=== PATIENT | female | born 1985 | race Caucasian/White ===

== ENCOUNTER 2016-08-10 20:27 | Emergency (ER) | payer SELFPAY ==
[2016-08-10] MEDS ORDERED: DIPH/PERTUSS(ACELL)/TETANUS VAC/PF 0.5 ML SYR (>=10YO) IM ONE (21:45)
--- NOTE | 2016-08-10 21:47 | ER Document Report ---
ED Medical Screen (RME) - General Chief Complaint: Dog Bite Stated Complaint: DOG BITE Notes: 31-year-old female, bitten by a stray dog on back and thigh just prior to arrival. Bulldog-looking dog, dog was not caught and is not in custody. Patient tetanus is not up-to-date within 5 years. TRAVEL OUTSIDE OF THE [place] IN LAST 30 DAYS: No - Related Data Allergies/Adverse Reactions: cephalexin monohydrate [From Keflex] Allergy (Verified 04/19/16 01:27) codeine [Codeine] Allergy (Verified 04/19/16 01:27) Past Medical History Renal/ Medical History: Denies: Hx Peritoneal Dialysis Past Surgical History: Reports: Hx Section, Hx Tubal Ligation - Immunizations Hx Diphtheria, Pertussis, Tetanus Vaccination: Yes Physical Exam - Vital signs Vitals: Temp Pulse BP Pulse Ox 98.3 F 110 H 146/102 H 99 08/10/16 20:43 08/10/16 20:43 08/10/16 20:43 08/10/16 20:43 - Skin Skin irregularity: other - Superficial linear wounds over the back Course - Vital Signs Vital signs: Temp Pulse Resp BP Pulse Ox 98.3 F 110 H 146/102 H 99 08/10/16 20:43 08/10/16 20:43 08/10/16 20:43 08/10/16 20:43
[2016-08-10] MEDS ORDERED: HYDROCODONE/ACETAMINOPHEN 5-325 MG TABLET PO ONE (23:16)
[2016-08-10] MEDS ORDERED: RABIES VACCINE (PCEC)/PF 2.5 UNIT/1 ML KIT IM ONE (23:16)
[2016-08-10] MEDS ORDERED: RABIES IMMUNE GLOBULIN INJ/PF 300 UNIT/2 ML SDV IM ONE (23:16)
[2016-08-10] MEDS ORDERED: HYDROCODONE/ACETAMINOPHEN 5-325 MG 6 TAB/DSPK PO PRN (23:16)
[2016-08-10] MEDS ORDERED: CIPROFLOXACIN HCL 500 MG TABLET PO ONE (23:18)
[2016-08-10] MEDS ORDERED: CLINDAMYCIN HCL 150 MG CAPSULE PO ONE (23:18)
--- NOTE | 2016-08-10 23:24 | ER Document Report ---
ED General - General Chief Complaint: Dog Bite Stated Complaint: DOG BITE Notes: Patient is a pleasant 31-year-old female who was attacked by dog. She says that the dog attacked her rainstorms. It was a rather large dog. Bit her on her lower back as well as on the back of her upper right leg. No other injuries. Patient does not know the dog is up-to-date vaccinations. She does not know the dog is now. She is allergic to Keflex. Patient says she also refuses to take penicillin because of the family members who have allergies to penicillin. No active bleeding. No other complaints this time. No other injuries. TRAVEL OUTSIDE OF THE [place] IN LAST 30 DAYS: No - Related Data Allergies/Adverse Reactions: cephalexin monohydrate [From Keflex] Allergy (Verified 04/19/16 01:27) codeine [Codeine] Allergy (Verified 04/19/16 01:27) Past Medical History - Social History Smoking Status: Unknown if Ever Smoked Frequency of alcohol use: None Drug Abuse: None Family History: Reviewed & Not Pertinent Patient has suicidal ideation: No Patient has homicidal ideation: No Renal/ Medical History: Denies: Hx Peritoneal Dialysis Past Surgical History: Reports: Hx Section, Hx Tubal Ligation - Immunizations Hx Diphtheria, Pertussis, Tetanus Vaccination: Yes Review of Systems - Review of Systems Notes: My Normal Review Basic REVIEW OF SYSTEMS: CONSTITUTIONAL : Denies fever, chills, or sweats. Denies recent illness. MUSCULOSKELETAL: Denies neck or back pain or joint pain or swelling. SKIN: Dog bite NEUROLOGICAL: Denies sensory or motor loss. ALL OTHER SYSTEMS REVIEWED AND NEGATIVE. Physical Exam - Vital signs Vitals: Temp Pulse BP Pulse Ox 98.3 F 110 H 146/102 H 99 08/10/16 20:43 08/10/16 20:43 08/10/16 20:43 08/10/16 20:43 - Notes Notes: General Appearance: Well nourished, alert, cooperative, no acute distress, mild to moderate obvious discomfort. Vitals: reviewed, See vital signs table. Back: Very large bite valerie to the right lower back. There are 2 areas were the skin was fully broken. They're not actively bleeding. These are not gaping wounds. Remainder of the teeth [place] are more superficial abrasions across the skin. There is no surrounding erythema or redness. Extremities: strength 5/5 in all extremities, good pulses in all extremities, bite valerie over the right upper posterior thigh. 2 small puncture wounds with some scraping from other teeth. No active bleeding. No open gaping wound. No surrounding redness., no edema. Skin: warm, dry, appropriate color, no rash Neuro: speech clear, oriented x 3, normal affect, responds appropriately to questions. Course - Vital Signs Vital signs: Temp Pulse Resp BP Pulse Ox 98.3 F 110 H 146/102 H 99 08/10/16 20:43 08/10/16 20:43 08/10/16 20:43 08/10/16 20:43 - Transfer of Care Notes: 08/11/16 00:04 Patient was given rabies immunoglobulin and vaccinations. She's given the schedule for the rabies vaccination. She's given pain medicine as well as antibiotics. She's encouraged return to ER physician redness or swelling around the wounds. I informed her the very importance of her returning to ER for the rabies vaccination in talked her about rabies in fact that it is a life ending illness if she was to contract it. Patient understands this and agrees to return for the vaccinations. Discharge - Discharge Clinical Impression: Dog bite Qualifiers: Encounter type: initial encounter Qualified Code(s): W54.0XXA - Bitten by dog, initial encounter Condition: Good Disposition: HOME, SELF-CARE Additional Instructions: Please be sure to follow the vaccination schedule dose given to you. Please return to ER. These will be quick nurse visits were we give you the vaccination. Please return to ER immediately if there is any redness or swelling around the wound or if you have fevers. Please take antibiotics as prescribed. Please return to ER immediately if you have significant diarrhea after starting the antibiotics. Prescriptions: Ciprofloxacin HCl [Cipro 500 mg Tablet] 500 mg PO BID #14 tablet Clindamycin HCl 300 mg PO ASDIR #56 capsule Hydrocodone/Acetaminophen [[place] 5-325 mg Tablet] 1 tab PO Q4 PRN #12 tablet PRN Reason: For Breakthrough Pain
[2016-08-11 02:01] VITALS: BP 146/81
== END 2016-08-11 00:50 | disposition home or self-care (01) ==
LOC: ER 20:27
DX: S31.050A Open bite of lower back and pelvis without penetration into retroperitoneum, initial encounter (principal); W54.0XXA Bitten by dog, initial encounter
CPT/HCPCS: 90376; 90471; 90675; 90715; 96372; 99283

== ENCOUNTER 2016-09-23 19:52 | Emergency (ER) | payer SELFPAY ==
--- NOTE | 2016-09-23 20:37 | ER Document Report ---
ED General - General Chief Complaint: Mouth Problem Stated Complaint: POSSIBLE JAW ABSCESS Time Seen by Provider: 09/23/16 20:31 Mode of Arrival: Ambulatory Information source: Patient TRAVEL OUTSIDE OF THE [place] IN LAST 30 DAYS: No - HPI Quality of pain: No pain Severity: Moderate - 5-year-old female presents to the emergency room today stating that she has severe decay to her right lower molar - Related Data Allergies/Adverse Reactions: cephalexin monohydrate [From Keflex] Allergy (Verified 04/19/16 01:27) codeine [Codeine] Allergy (Verified 04/19/16 01:27) Past Medical History - General Information source: Patient - Social History Smoking Status: Current Every Day Smoker Family History: Reviewed & Not Pertinent Renal/ Medical History: Denies: Hx Peritoneal Dialysis Past Surgical History: Reports: Hx Section, Hx Tubal Ligation - Immunizations Hx Diphtheria, Pertussis, Tetanus Vaccination: Yes Review of Systems - Review of Systems Constitutional: No symptoms reported EENT: No symptoms reported Cardiovascular: No symptoms reported Respiratory: No symptoms reported Gastrointestinal: No symptoms reported Genitourinary: No symptoms reported Female Genitourinary: No symptoms reported Musculoskeletal: No symptoms reported Skin: No symptoms reported Hematologic/Lymphatic: No symptoms reported Neurological/Psychological: No symptoms reported Physical Exam - Vital signs Vitals: Temp Pulse Resp BP Pulse Ox 98.3 F 103 H 18 141/94 H 98 09/23/16 20:01 09/23/16 20:01 09/23/16 20:01 09/23/16 20:01 09/23/16 20:01 Interpretation: Normal - General General appearance: Appears well, Alert - HEENT Head: Normocephalic, Atraumatic Eyes: Normal Pupils: PERRL Teeth diagram: 1 - Ear decay throughout the oral cavity especially to tooth 31 - Respiratory Respiratory status: No respiratory distress Chest status: Nontender Breath sounds: Normal Chest palpation: Normal - Cardiovascular Rhythm: Regular Heart sounds: Normal auscultation Murmur: No - Abdominal Inspection: Normal Distension: No distension Bowel sounds: Normal Tenderness: Nontender Organomegaly: No organomegaly - Back Back: Normal, Nontender - Extremities General upper extremity: Normal inspection, Nontender, Normal color, Normal ROM , Normal temperature General lower extremity: Normal inspection, Nontender, Normal color, Normal ROM , Normal temperature, Normal weight bearing. No: Adam's sign - Neurological Neuro grossly intact: Yes Cognition: Normal Orientation: AAOx4 [place] Coma Scale Eye Opening: Spontaneous [place] Coma Scale Verbal: Oriented [place] Coma Scale Motor: Obeys Commands [place] Coma Scale Total: 15 Speech: Normal Motor strength normal: LUE, RUE, LLE, RLE Sensory: Normal - Psychological Associated symptoms: Normal affect, Normal mood - Skin Skin Temperature: Warm Skin Moisture: Dry Skin Color: Normal Course - Vital Signs Vital signs: Temp Pulse Resp BP Pulse Ox 98.3 F 103 H 18 141/94 H 98 09/23/16 20:01 09/23/16 20:01 09/23/16 20:01 09/23/16 20:01 09/23/16 20:01 Discharge - Discharge Condition: Fair Disposition: HOME, SELF-CARE Additional Instructions: Dental Infection or Abscess You have an infection, perhaps an abscess (pus formation) of the gum around one of your teeth, which is probably decayed. If there is an abscess, it may drain on its own or it may need to be opened or lanced. Severe swelling or drainage around a tooth usually means a deep dental abscess which usually requires evaluation and treatment by a dentist or oral surgeon. Antibiotics may be prescribed while awaiting dental treatment. If you develop high fever with chills, worsening pain, or increasing swelling in the area, see a dentist or oral surgeon immediately or return to the Emergency Department immediately. Must follow-up with a dentist in 2-3 days. Follow-up with private doctor in 1 to 2 days for final radiology readings please return to the emergency room for any change worsening condition. Follow up with private M.D. for all other routine health care needs. Prescriptions: Clindamycin HCl [Cleocin HCl] 150 mg PO TID #30 capsule Lidocaine HCl [Lidocaine HCl Viscous] 5 ml MM Q4 PRN #100 PRN Reason:
[2016-09-23 21:27] VITALS: BP 132/91
== END 2016-09-23 21:00 | disposition home or self-care (01) ==
LOC: ER 19:52
DX: K04.7 Periapical abscess without sinus (principal); K02.9 Dental caries, unspecified; F17.200 Nicotine dependence, unspecified, uncomplicated; Z88.3 Allergy status to other anti-infective agents; Z88.6 Allergy status to analgesic agent; Z88.1 Allergy status to other antibiotic agents; Z88.5 Allergy status to narcotic agent
CPT/HCPCS: 99282

== ENCOUNTER 2017-05-22 04:23 | Emergency (ER) | payer SELFPAY ==
[2017-05-22] MEDS ORDERED: KETOROLAC TROMETHAMINE 60 MG/2 ML SDV IM ONE (05:14)
[2017-05-22] MEDS ORDERED: NORMAL SALINE 1000 ML 1,000 ML IV ONE (05:14)
[2017-05-22] MEDS ORDERED: ONDANSETRON 4 MG TAB.RAPDIS PO ONE (05:14)
[2017-05-22] MEDS ORDERED: OXYCODONE-ACETAMINOPHEN 5-325 MG TABLET PO ONE (05:14)
--- NOTE | 2017-05-22 05:15 | ER Document Report ---
ED Medical Screen (RME) - General Chief Complaint: Possible Kidney Stone Stated Complaint: FLANK PAIN Time Seen by Provider: 05/22/17 05:09 Notes: 32-year-old female, chief complaint of severe right flank pain radiating to her right abdomen, she vomited several times, symptoms woke her from sleep tonight. No fevers, no dysuria, no vaginal bleeding or discharge. Never had a kidney stone before. No daily meds. Past medical history of . TRAVEL OUTSIDE OF THE [place] IN LAST 30 DAYS: No - Related Data Allergies/Adverse Reactions: cephalexin monohydrate [From Keflex] Allergy (Verified 04/19/16 01:27) codeine [Codeine] Allergy (Verified 04/19/16 01:27) Past Medical History Renal/ Medical History: Denies: Hx Peritoneal Dialysis Past Surgical History: Reports: Hx Section, Hx Tubal Ligation - Immunizations Hx Diphtheria, Pertussis, Tetanus Vaccination: Yes Physical Exam - General General appearance: Anxious In distress: Moderate - Abdominal Bowel sounds: Normal Tenderness: Nontender - Back Back: CVA tenderness - Right sided
[2017-05-22 06:23] LABS: AMORPHOUS SEDIMENT,URINE TRACE /HPF; APPEARANCE,URINE TURBID; BILIRUBIN,URINE NEGATIVE (NEGATIVE); COLOR,URINE YELLOW; GLUCOSE, URINE NEGATIVE (NEGATIVE); KETONES,URINE NEGATIVE (NEGATIVE); LEUKOCYTE ESTERASE,URINE MODERATE (NEGATIVE); NITRITE,URINE NEGATIVE (NEGATIVE); PROTEIN,URINE 100 mg/dL (NEGATIVE); URINE SPECIFIC GRAVITY 1.039; UROBILINOGEN,URINE NEGATIVE mg/dL (<2.0)
[2017-05-22 06:46] LABS: ABSOLUTE EOSINOPHILS # (AUTO) 0.2 10^3/uL (0.0-0.6); ABSOLUTE LYMPHOCYTES (AUTO) 2.2 10^3/uL (0.5-4.7); ABSOLUTE MONOCYTES (AUTO) 0.5 10^3/uL (0.1-1.4); ABSOLUTE NEUT (AUTO) 8.8 10^3/uL (1.7-8.2); BASOPHILS % (AUTO) 0.2 % (0-2); EOSINOPHILS % (AUTO) 1.3 % (0-6); HEMATOCRIT 39.3 % (36.0-47.0); HEMOGLOBIN 13.5 g/dL (12.0-15.5); LYMPHOCYTES % (AUTO) 18.7 % (13-45); MEAN CORPUSCULAR HEMOGLOBIN 29.3 pg (27.0-33.4); MEAN CORPUSCULAR HGB CONC 34.3 g/dL (32.0-36.0); MEAN CORPUSCULAR VOLUME 86 fl (80-97); MONOCYTES % (AUTO) 4.7 % (3-13); PLATELET COUNT 264 10^3/uL (150-450); RED BLOOD COUNT 4.59 10^6/uL (3.72-5.28); RED CELL DISTRIBUTION WIDTH 13.7 % (11.5-14.0); SEGMENTED NEUTROPHILS % (AUTO) 75.1 % (42-78); TOTAL CELLS COUNTED % (AUTO) 100 %; WHITE BLOOD COUNT 11.7 10^3/uL (4.0-10.5)
[2017-05-22 07:01] LABS: ALANINE AMINOTRANSFERASE 26 U/L (9-52); ALBUMIN 4.6 g/dL (3.5-5.0); ALKALINE PHOSPHATASE 69 U/L (38-126); ANION GAP 11 (5-19); ASPARTATE AMINO TRANSFERASE 18 U/L (14-36); BILIRUBIN,DIRECT 0.2 mg/dL (0.0-0.4); BILIRUBIN,TOTAL 0.3 mg/dL (0.2-1.3); BLOOD UREA NITROGEN 17 mg/dL (7-20); CALCIUM 9.5 mg/dL (8.4-10.2); CARBON DIOXIDE 23 mmol/L (22-30); CHLORIDE 108 mmol/L (98-107); GLUCOSE 120 mg/dL (75-110); POTASSIUM 4.5 mmol/L (3.6-5.0); SODIUM 142.2 mmol/L (137-145); TOTAL PROTEIN 7.4 g/dL (6.3-8.2)
--- NOTE | 2017-05-22 07:06 | RADIOLOGY REPORT (SQ) ---
EXAM DESCRIPTION: CT ABDOMEN AND PELVIS WITHOUT CONTRAST CLINICAL HISTORY: right flank and abd pain, vomiting COMPARISON: None Available. TECHNIQUE: CT of the abdomen and pelvis without IV contrast. FINDINGS: Abdomen: The liver has normal size and density. No calcified gallstones. The spleen, pancreas, and adrenal glands are unremarkable. Moderate right hydroureter and hydronephrosis without obstructing calculus identified. No left hydronephrosis. The aorta and IVC have normal caliber and position. No free intraperitoneal air. The stomach and duodenum have normal course. Pelvis: Uterus is not enlarged. Urinary bladder is unremarkable. No free pelvic fluid or lymphadenopathy. No dilated loops of large or small bowel. Normal appendix. The visualized lung bases are clear. No destructive bone lesions identified. DLP: 1029.59 mGy-cm IMPRESSION: 1. Moderate right hydroureter and hydronephrosis. No obstructing ureteral calculus identified. These findings may indicate a recently passed calculus. This exam was performed according to our departmental dose-optimization program, which includes automated exposure control, adjustment of the mA and/or kV according to patient size and/or use of iterative reconstruction technique.
--- NOTE | 2017-05-22 07:55 | ER Document Report ---
ED General - General Chief Complaint: Possible Kidney Stone Stated Complaint: FLANK PAIN Time Seen by Provider: 05/22/17 05:09 TRAVEL OUTSIDE OF THE [place] IN LAST 30 DAYS: No - HPI Patient complains to provider of: Right flank pain Notes: Patient coming in for acute onset of right flank pain nausea vomiting. Patient denies history of kidney stones. Patient states woke her up from her sleep. Patient upon my evaluation is received pain medication is resting more chronically. Denies dysuria hematuria. Denies any trauma or travel - Related Data Allergies/Adverse Reactions: cephalexin monohydrate [From Keflex] Allergy (Verified 04/19/16 01:27) codeine [Codeine] Allergy (Verified 04/19/16 01:27) Past Medical History - Social History Smoking Status: Current Every Day Smoker Family History: Reviewed & Not Pertinent Patient has suicidal ideation: No Patient has homicidal ideation: No Renal/ Medical History: Denies: Hx Peritoneal Dialysis Past Surgical History: Reports: Hx Section, Hx Tubal Ligation - Immunizations Hx Diphtheria, Pertussis, Tetanus Vaccination: Yes Review of Systems - Review of Systems Constitutional: No symptoms reported EENT: No symptoms reported Cardiovascular: No symptoms reported Respiratory: No symptoms reported Gastrointestinal: No symptoms reported Genitourinary: Flank pain Female Genitourinary: No symptoms reported Musculoskeletal: No symptoms reported Skin: No symptoms reported Hematologic/Lymphatic: No symptoms reported Neurological/Psychological: No symptoms reported -: Yes All other systems reviewed and negative Physical Exam - Vital signs Vitals: Temp Pulse Resp BP Pulse Ox 97.9 F 89 22 H 152/83 H 97 05/22/17 04:25 05/22/17 04:25 05/22/17 04:25 05/22/17 04:25 05/22/17 04:25 Interpretation: Normal - General General appearance: Appears well, Alert - HEENT Head: Normocephalic, Atraumatic Eyes: Normal Pupils: PERRL - Respiratory Respiratory status: No respiratory distress Chest status: Nontender Breath sounds: Normal Chest palpation: Normal - Cardiovascular Rhythm: Regular Heart sounds: Normal auscultation Murmur: No - Abdominal Inspection: Normal Distension: No distension Bowel sounds: Normal Tenderness: Nontender Organomegaly: No organomegaly - Back Back: Normal, Nontender - Extremities General upper extremity: Normal inspection, Nontender, Normal color, Normal ROM , Normal temperature General lower extremity: Normal inspection, Nontender, Normal color, Normal ROM , Normal temperature, Normal weight bearing. No: Adam's sign - Neurological Neuro grossly intact: Yes Cognition: Normal Orientation: AAOx4 [place] Coma Scale Eye Opening: Spontaneous [place] Coma Scale Verbal: Oriented [place] Coma Scale Motor: Obeys Commands [place] Coma Scale Total: 15 Speech: Normal Motor strength normal: LUE, RUE, LLE, RLE Sensory: Normal - Psychological Associated symptoms: Normal affect, Normal mood - Skin Skin Temperature: Warm Skin Moisture: Dry Skin Color: Normal Course - Re-evaluation Re-evalutation: 05/22/17 16:00 CAT scan shows hydroureter signs of recently passed kidney stone. Will treat patient with Ultram encouraged patient to take Tylenol Motrin as well will discharge home. - Vital Signs Vital signs: Temp Pulse Resp BP Pulse Ox 97.6 F 77 16 128/82 H 99 05/22/17 08:30 05/22/17 08:30 05/22/17 08:30 05/22/17 08:30 05/22/17 08:30 - Laboratory Result Diagrams: 05/22/17 06:35 05/22/17 06:35 Laboratory results interpreted by me: 05/22/17 05/22/17 05/22/17 05:20 06:35 06:35 WBC 11.7 H Absolute Neutrophils 8.8 H Chloride 108 H Glucose 120 H Urine Protein 100 H Ur Leukocyte Esterase MODERATE H Discharge - Discharge Clinical Impression: Right flank pain Condition: Good Disposition: HOME, SELF-CARE Instructions: Flank Pain ([facility]), Oral Narcotic Medication ([facility]) Additional Instructions: Follow-up with your primary care physician. Return to the ER if symptoms worsen. Your CAT scan today shows dilation of your ureter consistent with a recently passed kidney stone. Kidney stone can be very small such as a grandson and and can cause some mild obstruction. While this ureter is dilated he can experience some pain spasm and nausea. Take medication as prescribed take Tylenol Motrin for pain. Prescriptions: Ondansetron [Zofran Odt] 4 mg PO Q6 PRN #30 tab.rapdis PRN Reason: For Nausea/Vomiting Tramadol HCl [Ultram 50 mg Tablet] 50 mg PO ASDIR PRN #20 tablet PRN Reason: Forms: Return to Work
[2017-05-22 08:41] VITALS: BP 128/82
== END 2017-05-22 08:30 | disposition home or self-care (01) ==
LOC: ER 04:23
DX: R10.9 Unspecified abdominal pain (principal); R11.2 Nausea with vomiting, unspecified; F17.200 Nicotine dependence, unspecified, uncomplicated
CPT/HCPCS: 99284; 96372; 96360; 36415; 85025; 81025; 80053; 81001; 76380; J1885; S0119; J7030

== ENCOUNTER 2018-08-19 20:53 | Emergency (ER) | payer SELFPAY ==
--- NOTE | 2018-08-19 22:22 | RADIOLOGY REPORT (SQ) ---
EXAM DESCRIPTION: XR WRIST 3 OR MORE VIEWS COMPLETED DATE/TME: 08/19/2018 00:00 CLINICAL HISTORY: 33 years, Female, swelling to wrist COMPARISON: None. NUMBER OF VIEWS: Three TECHNIQUE: Frontal, oblique, and lateral radiographs of the left wrist were obtained. LIMITATIONS: None. FINDINGS: Visualized osseous structures are normal in appearance. Joint spaces are well-maintained. No acute fracture or dislocation is evident. IMPRESSION: No acute osseous anomaly. copyright 2010 [employer]- All Rights Reserved
--- NOTE | 2018-08-20 00:24 | ER Document Report ---
HPI - HPI Time Seen by Provider: 08/19/18 23:44 Pain Level: 4 Context: Patient is a 33-year-old female that comes to the emergency department for chief complaint of pain to her left hand/wrist. She states this has been present for 2 weeks, has worsened, she states she can barely move her thumb or bend her wrist without having sharp pain. She states she started wearing a brace at night to keep from moving her wrist or she wakes up with even worse pain. She reports a slight swelling sensation to the area. She denies injury or history of the same. She denies redness or fever. She denies ever using IV drugs, she denies any daily medications or diagnosed medical problems. Past medical history of tubal ligation, LMP within the past month. - REPRODUCTIVE Reproductive: DENIES: : Past Medical History - General Information source: Patient - Social History Smoking Status: Never Smoker Frequency of alcohol use: None Drug Abuse: None Lives with: Family Family History: Reviewed & Not Pertinent - Medical History Medical History: Negative Renal/ Medical History: Denies: Hx Peritoneal Dialysis Past Surgical History: Reports: Hx Section, Hx Tubal Ligation - Immunizations Immunizations up to date: Yes Hx Diphtheria, Pertussis, Tetanus Vaccination: Yes Vertical Provider Document - CONSTITUTIONAL General Appearance: WD/WN, No Apparent Distress - INFECTION CONTROL TRAVEL OUTSIDE OF THE [place] IN LAST 30 DAYS: No - HEENT HEENT: Atraumatic, Normal ENT Exam, Normocephalic - NECK Neck: Normal Inspection - RESPIRATORY Respiratory: Breath Sounds Normal, No Respiratory Distress - CARDIOVASCULAR Cardiovascular: Regular Rate, Regular Rhythm - GI/ABDOMEN Gastrointestinal: Abdomen Soft, Abdomen Non-Tender - BACK Back: Normal Inspection - MUSCULOSKELETAL/EXTREMETIES Musculoskeletal/Extremeties: Tender - There is tenderness over the radial head thenar area, tenderness with flexion of the left thumb, pain with range of motion of the left wrist. Some snuffbox tenderness but not as specific as the above. Normal strength (although pain with moving the thumb), normal capillary refill and sensation. No swelling, erythema, abnormal heat, or injury noted. Unremarkable hand exam otherwise. Course - Re-evaluation Re-evalutation: Patient with positive Carline test. X-rays negative for any acute findings. Pain over the radial head. Examination is most consistent with de Quervain's tenosynovitis. Discussed options with patient, decision was made to place her in a thumb spica for comfort, provided with anti-inflammatories, she declines work release. Provided her with up-to-date website's patient information page. Discussed orthopedic follow-up, expectations, return precautions. Patient states understanding and agreement. - Vital Signs Vital signs: Temp Pulse Resp BP Pulse Ox 98.1 F 99 18 145/97 H 98 08/19/18 22:32 08/19/18 22:32 08/19/18 22:32 08/19/18 22:32 08/19/18 22:32 Procedures - Immobilization Left wrist Pre-Proc Neuro Vasc Exam: Normal Immobilizer type: Thumb spica Performed by: PCT Post-Proc Neuro Vasc Exam: Normal Alignment checked and good: Yes Discharge - Discharge Clinical Impression: Left wrist pain Condition: Stable Disposition: HOME, SELF-CARE Additional Instructions: Your evaluation indicates de Quervain's tenosynovitis. This usually does resolve with time, the treatment for this is a thumb spica splint (either the one we placed or a modified one as you were shown that you can purchase and wear). Along with this take the anti-inflammatories as prescribed, you can also remove the splint and ice this (i.e. 3-4 times a day for 10 to 15 minutes). If symptoms persist, please follow-up with the orthopedic referral as listed for additional management as discussed. Return if you worsen including severe worsening pain, swelling, redness, fever, or any other concerning or worsening symptoms. Prescriptions: Ibuprofen [Ibu] 800 mg PO TID PRN #30 tablet PRN Reason: Referrals: GERSON VALE MD [ACTIVE STAFF] - Follow up in 1 week
[2018-08-20 00:29] VITALS: BP 127/89
[2018-08-20] MEDS ORDERED: HYDROCODONE/ACETAMINOPHEN 5-325 MG (6 TAB/ER DISP) PO PRN (00:29)
== END 2018-08-20 01:02 | disposition home or self-care (01) ==
LOC: ER 20:53
DX: M25.532 Pain in left wrist (principal)
CPT/HCPCS: 99283

== ENCOUNTER 2018-11-04 22:50 | Emergency (ER) | payer SELFPAY ==
[2018-11-05 00:24] LABS: ABSOLUTE BASOPHILS # (AUTO) 0.2 10^3/uL (0.0-0.2); ABSOLUTE EOSINOPHILS # (AUTO) 0.4 10^3/uL (0.0-0.6); ABSOLUTE LYMPHOCYTES (AUTO) 3.7 10^3/uL (0.5-4.7); ABSOLUTE MONOCYTES (AUTO) 0.8 10^3/uL (0.1-1.4); ABSOLUTE NEUT (AUTO) 10.6 10^3/uL (1.7-8.2); BASOPHILS % (AUTO) 1.1 % (0-2); EOSINOPHILS % (AUTO) 2.3 % (0-6); HEMATOCRIT 38.9 % (36.0-47.0); HEMOGLOBIN 12.7 g/dL (12.0-15.5); LYMPHOCYTES % (AUTO) 23.6 % (13-45); MEAN CORPUSCULAR HEMOGLOBIN 27.5 pg (27.0-33.4); MEAN CORPUSCULAR HGB CONC 32.8 g/dL (32.0-36.0); MEAN CORPUSCULAR VOLUME 84 fl (80-97); MONOCYTES % (AUTO) 4.9 % (3-13); PLATELET COUNT 380 10^3/uL (150-450); RED BLOOD COUNT 4.63 10^6/uL (3.72-5.28); RED CELL DISTRIBUTION WIDTH 15.8 % (11.5-14.0); SEGMENTED NEUTROPHILS % (AUTO) 68.1 % (42-78); TOTAL CELLS COUNTED % (AUTO) 100 %; WHITE BLOOD COUNT 15.6 10^3/uL (4.0-10.5)
[2018-11-05 00:27] LABS: APPEARANCE,URINE CLEAR; BILIRUBIN,URINE NEGATIVE (NEGATIVE); COLOR,URINE YELLOW; GLUCOSE, URINE NEGATIVE (NEGATIVE); KETONES,URINE NEGATIVE (NEGATIVE); LEUKOCYTE ESTERASE,URINE NEGATIVE (NEGATIVE); NITRITE,URINE NEGATIVE (NEGATIVE); PROTEIN,URINE 30 mg/dL (NEGATIVE); UROBILINOGEN,URINE NEGATIVE mg/dL (<2.0)
[2018-11-05 00:29] LABS: URINE SPECIFIC GRAVITY 1.024
[2018-11-05] MEDS ORDERED: KETOROLAC TROMETHAMINE INJ/PF 30 MG/1 ML SDV IM ONE (01:34)
--- NOTE | 2018-11-05 01:37 | ER Document Report ---
ED General - General Chief Complaint: Vaginal Bleeding Stated Complaint: HEAVY BLEEDING, PAIN, NAUSEA Time Seen by Provider: 11/05/18 01:11 Notes: Patient is a 33-year-old female presents with complaint of heavy bleeding and cramping. She says the cramping pain in her pelvis little bit worse on the left than the right. She denies having objective fever but said today she is felt chilled. She denies any vomiting. Some nausea. Devious history of tubal ligation. No abnormal vaginal discharge. She says her menstrual periods are usually very regular. She says it is 2 weeks since her last normal menstrual period and that is very typical for her bleeding which between periods like this. She says she started bleeding on Sunday and is continued and has been heavier these last 2 days. She has been passing clots. TRAVEL OUTSIDE OF THE [place] IN LAST 30 DAYS: No - Related Data Allergies/Adverse Reactions: cephalexin monohydrate [From Keflex] Allergy (Verified 11/04/18 23:00) codeine [Codeine] Allergy (Verified 11/04/18 23:00) Past Medical History - Social History Smoking Status: Unknown if Ever Smoked Frequency of alcohol use: None Drug Abuse: None Family History: Reviewed & Not Pertinent Renal/ Medical History: Denies: Hx Peritoneal Dialysis Past Surgical History: Reports: Hx Section, Hx Tubal Ligation - Immunizations Immunizations up to date: Yes Hx Diphtheria, Pertussis, Tetanus Vaccination: Yes Review of Systems - Review of Systems Notes: My Normal Review Basic REVIEW OF SYSTEMS: CONSTITUTIONAL : Denies recent illness. RESPIRATORY: Denies cough, cold, or chest congestion. Denies shortness of breath, difficulty breathing, or wheezing. GASTROINTESTINAL: Abdominal and pelvic pain. No nausea. No vomiting. GENITOURINARY: Denies difficulty urinating, painful urination, burning, frequency, or blood in urine. FEMALE GENITOURINARY: Heavy vaginal bleeding. Pelvic pain. MUSCULOSKELETAL: Denies neck or back pain or joint pain or swelling. SKIN: Denies rash or skin lesions. HEMATOLOGIC : Denies easy bruising or bleeding. NEUROLOGICAL: Denies altered mental status or loss of consciousness. ALL OTHER SYSTEMS REVIEWED AND NEGATIVE. Physical Exam - Vital signs Vitals: Temp Pulse Resp BP Pulse Ox 97.9 F 116 H 18 146/100 H 97 11/04/18 23:11/04/18 23:05 11/04/18 23:11/04/18 23:05 11/04/18 23:05 - Notes Notes: General Appearance: Well nourished, alert, cooperative, no acute distress, moderate obvious discomfort. Vitals: reviewed, See vital signs table. Eyes: PERRL, EOMI, Conjuctiva clear Lungs: No wheezing, No rales, No rhonci, No accessory muscle use, good air exchange bilaterally. Heart: Normal rate, Regular rythm, No murmur, no rub Abdomen: Normal BS, soft, No rigidity, pain to palpation of her lower abdomen and pelvis that is worse in the left side than the right. Pelvic exam: Pelvic exam performed with female waste minimization technicianCherie cannon, at bedside. Patient has normal external genitalia. She does have some blood in vaginal vault. Cervix is normal-appearing without obvious masses. No vaginal laceration seen. Extremities: good pulses in all extremities, no swelling or tenderness in the extremities, no edema. Skin: warm, dry, appropriate color, no rash Neuro: speech clear, oriented x 3, normal affect, responds appropriately to questions. Course - Re-evaluation Re-evalutation: 11/05/18 03:34 She does have some blood in vaginal vault. Cervix is normal-appearing without obvious masses. No vaginal laceration seen. At this time I feel patient safe to be discharged home. Her hemoglobin is normal. Her ultrasound shows a small fibroid but otherwise does not show any concerning findings. I will refer her to ACTIVITY ASSISTANT. I encouraged her return to ER if she has increasingly heavy bleeding, difficulty breathing, passing out, lightheadedness, worsening pain, fevers, or if she feels like she is worsening in any way. Dictation of this chart was performed using voice recognition software; therefore, there may be some unintended grammatical errors. 11/05/18 03:34 - Vital Signs Vital signs: Temp Pulse Resp BP Pulse Ox 97.9 F 116 H 18 146/100 H 97 11/04/18 23:05 11/04/18 23:05 11/04/18 23:05 11/04/18 23:05 11/04/18 23:05 - Laboratory Result Diagrams: 11/05/18 00:10 Laboratory results interpreted by me: 11/05/18 11/05/18 00:10 00:10 WBC 15.6 H RDW 15.8 H Absolute Neutrophils 10.6 H Urine Protein 30 H Urine Ascorbic Acid 20 H Discharge - Discharge Clinical Impression: Abnormal vaginal bleeding, Fibroid Condition: Stable Disposition: HOME, SELF-CARE Additional Instructions: You do have some clear vaginal bleeding. This could be related to the fibroid that seen on ultrasound. It could also be related to a temporary change in your estrogen and progesterone cycle that can lead to abnormal bleeding. I will refer you to the social insurance administrator for further evaluation. Please have a low threshold to return to ER if you have fevers, increasing pain, heavy bleeding leading to difficulty breathing, passing out, or dizziness. I prescribed a medication for the cramping called Toradol. Do not take other NSAID medicaitons such as Aspirin, Motrin, Ibuprofen, Aleve, or Advil when taking this medication. It is okay to take Tylenol. Prescriptions: Ketorolac Tromethamine [Toradol 10 mg Tablet] 10 mg PO Q8HP PRN #15 tablet PRN Reason: abdominal pain Forms: Return to Work
--- NOTE | 2018-11-05 02:25 | RADIOLOGY REPORT (SQ) ---
EXAM DESCRIPTION: US PELVIS TRANSVAGINAL COMPLETED DATE/TME: 11/05/2018 01:34 CLINICAL HISTORY: 33 years, Female, pelvic pain, heavy bleeding COMPARISON: None. TECHNIQUE: Transverse and longitudinal transvaginal sonographic images of the pelvis LIMITATIONS: None. FINDINGS: The uterus measures 9.3 x 4.8 x 4.2 cm. The endometrium measures 9.4 mm in thickness. There genus echotexture to the myometrium. There is a 1.8 x 1.5 cm fibroid anteriorly. The right ovary measures 2.4 x 1.9 x 1.9 cm, the left 3.2 x 1.8 x 1.9 cm. Arterial and venous flow to both ovaries. No adnexal cyst or mass. No free fluid IMPRESSION: Small uterine fibroid. Remainder unremarkable copyright 2011 [employer]- All Rights Reserved
[2018-11-05 03:48] VITALS: BP 129/86
== END 2018-11-05 03:48 | disposition home or self-care (01) ==
LOC: ER 22:50
DX: N93.9 Abnormal uterine and vaginal bleeding, unspecified (principal); D25.9 Leiomyoma of uterus, unspecified; R10.2 Pelvic and perineal pain; R11.0 Nausea; Z98.51 Tubal ligation status; Z88.1 Allergy status to other antibiotic agents; Z88.5 Allergy status to narcotic agent
CPT/HCPCS: 99284; 36415; 84703; 85025; 81001; 76830; 93976; J1885

== ENCOUNTER 2019-11-07 16:09 | Emergency (ER) | payer SELFPAY ==
[2019-11-07 21:31] VITALS: BP 142/92
[2019-11-07] MEDS ORDERED: KETOROLAC TROMETHAMINE INJ/PF 30 MG/1 ML SDV IV ONE (21:46)
[2019-11-07] MEDS ORDERED: NORMAL SALINE 1000 ML 1,000 ML IV ONE (21:46)
--- NOTE | 2019-11-07 21:48 | ER Document Report ---
ED General - General Chief Complaint: Nausea Stated Complaint: HEADACHE,NAUSEA,VOMITING Time Seen by Provider: 11/07/19 21:27 Notes: Patient is a 34-year-old female that comes emergency department for chief complaint of sick symptoms since Sunday (approximately 4 days now). She states initially she was vomiting, this resolved, however she has generalized body aches, occasional coughing, occasional headaches, and feeling generally weak. S he states she had to leave work because she could barely stand up earlier. She denies dizziness, chest pain, passing out, difficulty breathing, fever. She smokes, drinks daily, denies recreational drugs, denies , denies daily medications. She works at a convenience store. TRAVEL OUTSIDE OF THE [place] IN LAST 30 DAYS: No - Related Data Allergies/Adverse Reactions: cephalexin monohydrate [From Keflex] Allergy (Verified 11/04/18 23:00) codeine [Codeine] Allergy (Verified 11/04/18 23:00) Past Medical History - General Information source: Patient - Social History Smoking Status: Current Every Day Smoker Chew tobacco use (# tins/day): No Smoking Education Provided: Yes - <3 min Frequency of alcohol use: Occasional Drug Abuse: None Lives with: Family Family History: Reviewed & Not Pertinent Patient has homicidal ideation: No Renal/ Medical History: Denies: Hx Peritoneal Dialysis Past Surgical History: Reports: Hx Section, Hx Tubal Ligation - Immunizations Immunizations up to date: Yes Hx Diphtheria, Pertussis, Tetanus Vaccination: Yes Review of Systems - Review of Systems Constitutional: See HPI EENT: No symptoms reported Cardiovascular: No symptoms reported Respiratory: See HPI Gastrointestinal: No symptoms reported Genitourinary: No symptoms reported Female Genitourinary: No symptoms reported Musculoskeletal: See HPI Skin: No symptoms reported Hematologic/Lymphatic: No symptoms reported Neurological/Psychological: No symptoms reported Physical Exam - Vital signs Vitals: Temp Pulse Resp BP Pulse Ox 98.2 F 104 H 18 128/98 H 98 11/07/19 17:10 11/07/19 17:10 11/07/19 17:10 11/07/19 17:10 11/07/19 17:10 - Notes Notes: GENERAL: Alert, interacts well. No acute distress. HEAD: Normocephalic, atraumatic. EYES: Pupils equal, round, and reactive to light. Extraocular movements intact. ENT: Oral mucosa moist, tongue midline. Oropharynx unremarkable. Airway patent. Nares patent, sinuses non-tender, ear canals unremarkable, TM's intact. NECK: Full range of motion. Supple. Trachea midline. No lymphadenopathy. LUNGS: Clear to auscultation bilaterally, no wheezes, rales, or rhonchi. No respiratory distress. Non-tender chest wall. HEART: Regular rate and rhythm. No murmur ABDOMEN: Soft, non-tender. Non-distended. Bowel sounds present in all 4 q uadrants. GENITOURINARY: Deferred EXTREMITIES: Moves all 4 extremities spontaneously. No edema, normal radial and dorsalis pedis pulses bilaterally. No cyanosis. BACK: no cervical, thoracic, lumbar midline tenderness. No saddle anesthesia, normal distal neurovascular exam. Moves all extremities in full range of motion. NEUROLOGICAL: Alert and oriented x3. Normal speech. Cranial nerves II through X II grossly intact. Strength 5/5 in all extremities. PSYCH: Normal affect, normal mood. SKIN: Warm, dry, normal turgor. No rashes or lesions noted. Course - Re-evaluation Re-evalutation: Patient is actually quite well-appearing on my evaluation, talkative, alert, no nuchal rigidity, clear lungs, soft abdomen, unremarkable ENT and skin exams. Initial heart rate 104, unremarkable and reevaluation, no fever or hypotension. CBC unremarkable, chemistry unremarkable, negative, chest x-ray with no acute findings. Patient was treated with IV fluids and Toradol. On reevaluation she has no complaints. She remains very well-appearing. Discussed options with patient. Because of her right of symptoms and possible exposures at work she will be tested for COVID-19, discussed expectations, follow-up, return precautions. Patient states understanding and agreement. Stable and well-appearing at time of discharge. - Vital Signs Vital signs: Temp Pulse Resp BP Pulse Ox 98.7 F 98 16 142/92 H 98 11/07/19 21:39 11/07/19 21:25 11/07/19 21:25 11/07/19 21:25 11/07/19 21:25 - Laboratory Result Diagrams: 11/07/19 22:20 11/07/19 22:20 Laboratory results interpreted by me: 11/07/19 11/07/19 22:20 22:20 WBC 11.0 H RDW 16.0 H Urine Ketones TRACE H Discharge - Discharge Clinical Impression: Weakness, Body aches, Dehydration, Cough Condition: Stable Disposition: HOME, SELF-CARE Additional Instructions: Your work-up shows some dehydration as we discussed but is otherwise showing no concerning findings. Your overall symptoms are suggestive of a viral illness as well, you have been tested for COVID-19, you will be contacted with these results, see additional instructions listed below. Return for any concerning symptoms including difficulty breathing, uncontrolled vomiting, or any other concerning or worsening symptoms. As a person under investigation for COVID-19, the [place] Department of Health and Human Services (division on public health) advises you to adhere to the following guidance until your test results are reported to you. If your test result is positive, you will receive additional information from your provider and your local health department at that time. Remain at home until you are cleared by the health provider or public health authorities. Keep a log of visitors to your home, notify any visitors to your home of your isolation status. If you plan to move to a new address or leave the [facility], notify the local health department in your County. Call your Doctor or seek care if you have an urgent medical need. Before seeking medical care, call him to get instructions from the provider before arriving at the medical office, clinic, or hospital. Notify them that you are being tested for the virus (COVID-19) so that arrangements can be made, as necessary, to prevent transmission to others in the healthcare setting. Next, notify the local health department in your county. If a medical emergency arises and you need to call 911, inform the first respond ers that you are being tested for the virus that causes COVID-19. Next, notify the local health department in your county. Forms: Return to Work
--- NOTE | 2019-11-07 22:33 | RADIOLOGY REPORT (SQ) ---
EXAM DESCRIPTION: X-ray, single view of the chest CLINICAL HISTORY: 34 years Female, cough, chills, body aches, weakness COMPARISON: None. FINDINGS: Lungs: Lungs are clear. No pneumonia or edema. No pneumothorax or pleural effusion. Mediastinum: Cardiac and mediastinal silhouette are normal. Bones: Osseous structures are normal. IMPRESSION: Unremarkable single view of the chest
[2019-11-07 22:41] LABS: ABSOLUTE BASOPHILS # (AUTO) 0.1 10^3/uL (0.0-0.2); ABSOLUTE LYMPHOCYTES (AUTO) 3.2 10^3/uL (0.5-4.7); ABSOLUTE MONOCYTES (AUTO) 0.9 10^3/uL (0.1-1.4); TOTAL CELLS COUNTED % (AUTO) 100 %
[2019-11-07 22:44] LABS: APPEARANCE,URINE CLEAR; BILIRUBIN,URINE NEGATIVE (NEGATIVE); COLOR,URINE YELLOW; GLUCOSE, URINE NEGATIVE (NEGATIVE); KETONES,URINE TRACE mg/dL (NEGATIVE); LEUKOCYTE ESTERASE,URINE NEGATIVE (NEGATIVE); NITRITE,URINE NEGATIVE (NEGATIVE); PROTEIN,URINE NEGATIVE (NEGATIVE); URINE SPECIFIC GRAVITY 1.028; UROBILINOGEN,URINE NEGATIVE mg/dL (<2.0)
[2019-11-07 23:00] LABS: ALBUMIN 4.6 g/dL (3.5-5.0); ALKALINE PHOSPHATASE 77 U/L (38-126); ANION GAP 7 (5-19); ASPARTATE AMINO TRANSFERASE 28 U/L (14-36); BILIRUBIN,TOTAL 0.3 mg/dL (0.2-1.3); BLOOD UREA NITROGEN 12 mg/dL (7-20); CALCIUM 9.4 mg/dL (8.4-10.2); CARBON DIOXIDE 26 mmol/L (22-30); CHLORIDE 105 mmol/L (98-107); GLUCOSE 103 mg/dL (75-110); POTASSIUM 3.8 mmol/L (3.6-5.0); TOTAL PROTEIN 7.7 g/dL (6.3-8.2)
[2019-11-07 23:12] LABS: ABSOLUTE EOSINOPHILS # (AUTO) 0.4 10^3/uL (0.0-0.6); ABSOLUTE NEUT (AUTO) 6.5 10^3/uL (1.7-8.2); BASOPHILS % (AUTO) 0.7 % (0-2); EOSINOPHILS % (AUTO) 3.8 % (0-6); HEMATOCRIT 37.9 % (36.0-47.0); HEMOGLOBIN 12.6 g/dL (12.0-15.5); LYMPHOCYTES % (AUTO) 29.1 % (13-45); MEAN CORPUSCULAR HEMOGLOBIN 28.2 pg (27.0-33.4); MEAN CORPUSCULAR HGB CONC 33.3 g/dL (32.0-36.0); MEAN CORPUSCULAR VOLUME 85 fl (80-97); MONOCYTES % (AUTO) 7.8 % (3-13); PLATELET COUNT 356 10^3/uL (150-450); RED BLOOD COUNT 4.47 10^6/uL (3.72-5.28); SEGMENTED NEUTROPHILS % (AUTO) 58.6 % (42-78)
== END 2019-11-08 00:06 | disposition home or self-care (01) ==
LOC: ER 16:09
DX: R53.1 Weakness (principal); E86.0 Dehydration; R11.2 Nausea with vomiting, unspecified; R05 Cough; R51 Headache; F17.200 Nicotine dependence, unspecified, uncomplicated; Z20.828 Contact with and (suspected) exposure to other viral communicable diseases
CPT/HCPCS: 99283; 96361; 96374; 36415; 83690; 84703; 85025; 87635; 80053; 81001; 71045; J1885; J7030; C9803